=== PATIENT | male | born 1995 | race Hispanic/Latino ===

== ENCOUNTER 2023-05-29 14:25 | Emergency (ER) | payer OTHER ==
[~2023-05-29] VITALS: Ht 175.3 cm; Wt 104.3 kg
[2023-05-29 14:45] VITALS: PULSE 98; RESP 18
[2023-05-29] MEDS ORDERED: IPRATROPIUM/ALBUTEROL SULFATE 3 ML SOLUTION IH ONE ×3 (14:45→15:00)
[2023-05-29 14:53] LABS: BASOPHILS # (AUTO) 0.05 K/uL (0.00-0.20); BASOPHILS % (AUTO) 0.5 % (0.0-5.0); EOSINOPHILS # (AUTO) 0.09 K/uL (0.00-0.70); EOSINOPHILS % (AUTO) 0.9 % (0.0-8.0); HEMATOCRIT 48.7 % (42-54); IMMATURE GRANULOCYTE ABSOLUTE 0.02 K/uL (0-1); LYMPHOCYTES # (AUTO) 2.6 K/uL (1.0-4.8); LYMPHOCYTES % (AUTO) 25.9 % (21.0-51.0); MEAN CORPUSCULAR HEMOGLOBIN 29.2 pg (27.0-33.0); MEAN CORPUSCULAR HGB CONC 35.3 g/dL (32.0-36.0); MEAN CORPUSCULAR VOLUME 82.5 fL (79-99); MONOCYTES % (AUTO) 9.7 % (3.0-13.0); NEUTROPHILS # (AUTO) 6.2 K/uL (1.8-7.7); NEUTROPHILS % (AUTO) 62.8 % (40.0-77.0); PLATELET COUNT (AUTO) 359 K/uL (130-400); RED CELL DISTRIBUTION WIDTH 11.9 % (11.0-15.5); WHITE BLOOD COUNT (AUTO) 9.9 K/uL (4.8-10.8)
[2023-05-29 15:02] LABS: ABG BASE EXCESS 1.1 mmol/L (-2.0-3.0); ABG HCO3 18.7 mmol/L (21.0-28.0); ABG OXYGEN SATURATION 99.4 % (95.0-99.0); ABG PCO2 18 mmHg (35-48); ABG PH 7.628 (7.350-7.450); CARBON MONOXIDE 0.5; DEVICE COMMENT RR 5LNC; HHb 0.6; PO2, ARTERIAL BG 176.8 mmHg (83.0-108.0); VENT MODE, BG 5LNC (ROOM AIR)
[2023-05-29 15:04] LABS: CREATININE 1.1 mg/dL (0.5-1.5); POTASSIUM 3.5 mmol/L (3.5-5.1)
[2023-05-29 15:09] LABS: ALBUMIN 4.4 g/dL (3.5-5.0); BILIRUBIN,TOTAL 0.7 mg/dL (0.2-1.0); MAGNESIUM 1.6 mg/dL (1.80-2.40); TOTAL PROTEIN, SERUM 8.2 g/dL (6.0-8.3)
[2023-05-29 15:23] LABS: APPEARANCE,URINE CLEAR (CLEAR); BILIRUBIN,URINE NEGATIVE (NEGATIVE); COLOR,URINE YELLOW (YELLOW); GLUCOSE, URINE (UA) NEGATIVE (NEGATIVE); KETONES,URINE 40 mg/dL (NEGATIVE); LEUKOCYTE ESTERASE ,URINE 75 Leu/uL (NEGATIVE); NITRATE,URINE NEGATIVE (NEGATIVE); OCCULT BLOOD,URINE NEGATIVE (NEGATIVE); PH,URINE 7.5 (5.0-8.0); PROTEIN,URINE 50 mg/dL (NEGATIVE); UROBILINOGEN,URINE 0.2 mg/dL (0.2-1.0)
[2023-05-29 15:27] LABS: ADD UA MICROSCOPIC YES
[2023-05-29 15:29] LABS: MUCUS,URINE MOD LPF (None Seen); RBC,URINE 0-1 /HPF (0-1); SQUAMOUS EPITHELIAL CELL,UR RARE /HPF (0-2); WBC,URINE 26-50 /HPF (0-1)
[2023-05-29 15:32] LABS: AMPHET/METH SCREEN,URINE NEGATIVE (NEGATIVE); BARBITURATE SCREEN, URINE NEGATIVE (NEGATIVE); BENZODIAZEPINES SCREEN,URINE NEGATIVE (NEGATIVE); CANNABINOID SCREEN,URINE POSITIVE (NEGATIVE); COCAINE SCREEN,URINE POSITIVE (NEGATIVE); OPIATE SCREEN,URINE NEGATIVE (NEGATIVE); PHENCYCLIDINE SCREEN,URINE NEGATIVE (NEGATIVE)
[2023-05-29 15:33] VITALS: BP 148/85; PULSE 89; RESP 18; O2SAT 98
[2023-05-29] MEDS ORDERED: ONDANSETRON 4MG INJ IVP ONE (17:00)
[2023-05-29] MEDS ORDERED: CEPH500B PO (17:13)
[2023-05-29] MEDS ORDERED: ONDA22I SL (17:13)
== END 2023-05-29 17:58 | disposition home or self-care (01) ==
LOC: EDH 14:25
DX: N39.0 Urinary tract infection, site not specified (principal); R11.0 Nausea
CPT/HCPCS: 99285; 96374; 71045; 82947; 82550; 83735; 84484; 80053; 82803; 80305; 85025; 87088; 83605; 36415; 93005; 36600; 94640; 81001; 85018; 82435; 84132; 84295; J2405

== ENCOUNTER 2024-04-18 14:24 | Emergency (ER) | payer SELFPAY ==
[~2024-04-18] VITALS: Ht 177.8 cm; Wt 107.5 kg
[~2024-04-18 14:24] MED LIST: CEPH500B PO; ONDA22I SL
[2024-04-18 15:59] LABS: ADD UA MICROSCOPIC NO; APPEARANCE,URINE CLEAR (CLEAR); BILIRUBIN,URINE NEGATIVE (NEGATIVE); COLOR,URINE LIGHT-YELLOW (YELLOW); GLUCOSE, URINE (UA) NEGATIVE (NEGATIVE); KETONES,URINE NEGATIVE (NEGATIVE); LEUKOCYTE ESTERASE ,URINE NEGATIVE Leu/uL (NEGATIVE); NITRATE,URINE NEGATIVE (NEGATIVE); OCCULT BLOOD,URINE NEGATIVE (NEGATIVE); PROTEIN,URINE NEGATIVE (NEGATIVE); UROBILINOGEN,URINE 0.2 mg/dL (0.2-1.0)
[2024-04-18] MEDS: acetaMINOPHEN 500 MG TABLET PO ONE (16:01)
[2024-04-18 16:09] LABS: RAPID GROUP A STREP negative (NEGATIVE)
[2024-04-18 16:09] LABS: HEMATOCRIT 46.4 % (42-54); MEAN CORPUSCULAR HGB CONC 34.1 g/dL (32.0-36.0); MEAN CORPUSCULAR VOLUME 85.1 fL (79-99); RED BLOOD CELL COUNT(AUTO) 5.45 MIL/uL (4.50-6.20); RED CELL DISTRIBUTION WIDTH 11.9 % (11.0-15.5); WHITE BLOOD COUNT (AUTO) 9.2 K/uL (4.8-10.8)
[2024-04-18 16:15] LABS: INFLUENZA TYPE A Negative For Type A (NEGATIVE); INFLUENZA TYPE B Negative For Type B (NEGATIVE)
[2024-04-18 16:16] LABS: CREATININE 0.9 mg/dL (0.5-1.3); POTASSIUM 4.6 mmol/L (3.5-5.1)
[2024-04-18 16:17] LABS: COVID19 (SARS ANTIGEN RAPID) PRESUMPTIVE NEGATIVE (NEGATIVE)
[2024-04-18] MEDS ORDERED: Solu-medROL 125MG VIAL IVP ONE (17:00)
[2024-04-18] MEDS: IpraTROPium/alBUTERol SULFATE 3 ML SOLUTION IH ONE (17:19)
[2024-04-18 17:20] VITALS: PULSE 78; RESP 18
[2024-04-18] MEDS: Solu-medROL 125MG VIAL IM ONE (17:21)
[2024-04-18] MEDS ORDERED: ALBUHFA IH (18:30)
[2024-04-18 18:41] VITALS: BP 130/72; PULSE 78; RESP 18; TEMP 98; O2SAT 99
== END 2024-04-18 18:42 | disposition home or self-care (01) ==
LOC: EDH 14:24
DX: J40 Bronchitis, not specified as acute or chronic (principal); I10 Essential (primary) hypertension; Z20.822 Contact with and (suspected) exposure to COVID-19
CPT/HCPCS: 99285; 74176; 71045; 87426; 82550; 84484; 80048; 85027; 87880; 87804 ×2; 81003; 36415; 96372; 93005; 94640; J2919

== ENCOUNTER 2024-09-26 09:58 | Emergency (ER) | payer BC ==
[~2024-09-26] VITALS: Ht 177.8 cm; Wt 108.9 kg
[~2024-09-26 09:58] MED LIST changes: +ALBUHFA IH
--- NOTE | 2024-09-26 10:07 | ERN ---
ED Note History of Present Illness Stated Complaint: TOOTH PROBLEM Chief Complaint: Tooth Ache/Pain Time Seen by MD: 10:01 Dictation: PATIENT IS A 29-YEAR-OLD MALE HERE WITH COMPLAINTS OF DENTAL BLEEDING STATUS POST TOOTH EXTRACTION YESTERDAY AT A LOCAL DENTIST OFFICE. HE STATES IT HAS BEEN BLEEDING SINCE THE EXTRACTION, STATES HE CALLED THE DENTIST'S OFFICE THIS MORNING AND THEY WERE CLOSED. DENIES USE OF BLOOD THINNERS Allergies: Coded Allergies: No Known Allergies (Unverified Allergy, Unknown, 05/29/23) Home Meds Active Scripts Albuterol Sulfate (Ventolin Hfa/Proventil Hfa/Proair Hfa) 90 Mcg Puff, 2 PUFF IH Q4HPRN PRN for wheezing for 30 Days, #18 GM 0 Refills Prov:ASHLEY ALMANZA MD 04/18/24 Ondansetron HCl (Zofran) 4 Mg/2 Ml Inj, 8 MG SL Q8H PRN for NAUSEA/VOMITING for 7 Days, #21 TAB.SL Prov:SEAN HOOKS MD 05/29/23 Cephalexin Monohydrate (Keflex) 500 Mg Cap, 500 MG PO QID for 7 Days, #28 CAP Prov:SEAN HOOKS MD 05/29/23 Past Medical History Past Medical History: Hypertension Surgical History: None RN Note Reviewed/Agreed w/PFSH: Yes Review of System Dictation CONSTITUTIONAL: NEGATIVE EXCEPT FOR HPI HEAD/FACE: NEGATIVE EXCEPT FOR HPI EENT: NEGATIVE EXCEPT FOR HPI DENTAL BLEEDING STATUS POST EXTRACTION RESPIRATORY: NEGATIVE EXCEPT FOR HPI GASTROINTESTINAL/ABDOMINAL: NEGATIVE EXCEPT FOR HPI GENITOURINARY: NEGATIVE EXCEPT FOR HPI MUSCULOSKELETAL: NEGATIVE EXCEPT FOR HPI INTEGUMENTARY: NEGATIVE EXCEPT FOR HPI NEUROLOGICAL/PSYCH: NEGATIVE EXCEPT FOR HPI HEMATOLOGIC/LYMPHATIC: NEGATIVE EXCEPT FOR HPI ALL SYSTEMS NEGATIVE, EXCEPT NOTED ABOVE. 13 POINT REVIEW OF SYSTEMS ASSESSED AND ALL NEGATIVE EXCEPT FOR ABOVE. Initial Vital Sign VS Vital Signs Date Time Temp Pulse Resp B/P (MAP) Pulse Ox O2 Delivery O2 Flow Rate FiO2 09/26/24 09:59 97.2 82 18 146/99 97 Physical Exam Dictation VITAL SIGNS REVIEWED GENERAL APPEARANCE: ALERT, ORIENTED X 3, NO ACUTE DISTRESS, WELL DEVELOPED, NOURISHED. HEAD AND FACE: NON-TRAUMATIC. EYES: PERRL, PINK CONJUNCTIVAS, EYELID NO TRAUMA, ANTERIOR CHAMBER WITH ARCUS SENILIS. EARS: PINNAS INTACT AND NO SIGNS OF TRAUMA OR ERYTHEMA EAR CANALS CLEAR AND NO DISCHARGE TM NO ERYTHEMA NOSE: NO DISCHARGE, NO BLEEDING. OROPHARYNX: SOCKET NUMBER 4 BLEEDING PHARYNX CLEAR,NO ERYTHEMA, TONSILS NO EXUDATES, NO ABSCESSES NOTED, MUCOUS MEMBRANE MOIST NECK: SUPPLE, NON-TENDER, NO THYROMEGALY, NO MASSES, NO JVD, NO BRUITS BREAST:DEFERRED CHEST:NO TENDERNESS, NO CREPITUS, NO PARADOXICAL MOVEMENT, NO RETRACTIONS LUNGS:CLEAR, WELL-VENTILATED, SYMMETRIC, NO RALES, NO WHEEZING, NO RHONCHI, NO STRIDOR, GOOD BREATH SOUNDS BILATERALLY HEART: REGULAR RATE, REGULAR RHYTHM, NO MURMUR, NO GALLOPS VASCULAR: NO PERIPHERAL EDEMA, ABDOMEN: SOFT, POSITIVE BOWEL SOUNDS, NONDISTENDED, NO GUARDING, NONTENDER, NO REBOUND, NO MASSES NO HEPATOMEGALY, NO SPLENOMEGALY, NO GARRISON'S SIGN, NO HERNIAS. RECTAL: DEFERRED GENITAL: DEFERRED NEUROLOGICAL: NORMAL SPEECH, MOTOR FUNCTION INTACT, SENSORY FUNCTION INTACT MUSCULOSKELETAL: NECK NONTENDER, FULL RANGE OF MOTION, BACK NONTENDER, FULL RANGE OF MOTION, EXTREMITIES: NONTENDER, FULL RANGE OF MOTION SKIN: COLOR PINK, DRY, NO TURGOR, NO RASH, NO LACERATIONS, NO ABRASIONS, NO CONTUSIONS. LYMPHATIC: DEFERRED Results (Laboratory/Radiology) Labs Reviewed?: Yes ED Course ED Course Orders Procedure Category Date Status Time *Nursing CPOE 09/26/24 Transmitted Communication: 10:04 Vital Signs Date Time Temp Pulse Resp B/P (MAP) Pulse Ox O2 Delivery O2 Flow Rate FiO2 09/26/24 09:59 97.2 82 18 146/99 97 1045/SOCKET INSPECTED AND CLOT HIS FORMED. QUICK CLOT WITH 4 X 4 WAS REPLACED. PATIENT TOLD TO CONTINUE PRESSURE ON THE SOCKET AND STATES HE HAS A DENTIST HE FOUND IN [place] THAT WAS SEE HIM EMERGENTLY. 1105/SOCKET REINSPECTED, LARGE CLOT HIS FORMED IN THE SOCKET. NO ACTIVE BLEEDING AT THIS TIME. PATIENT STATES HE HAS AN APPOINTMENT WITH THE DENTIST IN [facility] AT 14:00 HOURS. Medical Decision Making MDM MEDICAL DISCHARGE MAKING BASED ON TREATMENT OF POST DENTAL EXTRACTION BLEEDING WITH QUICK CLOT AND 4X4S. PATIENT HAS FORMED A CLOT IN THE SOCKET NO ACTIVE BLEEDING AT THIS TIME PATIENT HAS A FOLLOW UP APPOINTMENT WITH THE DENTIST IN [facility] AT 14:00 TODAY. Procedure Procedure Dictation: 1115/EXPLAINED PROCEDURE TO PATIENT HE AGREED TO PROCEED SMALL QUICK CLOT WAS PLACED DIRECTLY INTO SOCKET WITH 4 X 4 FOR PRESSURE AND PATIENT TOLD TO [facility]AILA DX & DISP Disposition: Discharge Departure Impression: Primary Impression: Bleeding post tooth extraction Condition: Stable Additional Instructions: FOLLOW-UP WITH PRIMARY CARE PROVIDER IN 1 TO 2 DAYS. TAKE MEDICATIONS DIRECTED HERE IN THE EMERGENCY ROOM. OKAY TO CONTINUE HOME MEDICATIONS UNLESS OTHERWISE DISCUSSED DURING YOUR VISIT IN THE EMERGENCY ROOM TODAY. RETURN TO YOUR NEAREST EMERGENCY ROOM IF SYMPTOMS WORSEN OR IF THERE IS NO IMPROVEMENT. CALL 911 IF YOU NEED IMMEDIATE ASSISTANCE. TAKE TYLENOL OR MOTRIN [id number] NEEDED AND IF NO CONTRAINDICATIONS ARE PRESENT. INCREASE ORAL HYDRATION. A WOUND CULTURE OR URINE CULTURE WAS ORDERED HERE IN THE EMERGENCY ROOM DEPARTMENT PLEASE FOLLOW-UP WITH PRIMARY CARE PROVIDER AND ADVISE THEM TO GET REPEAT PORTS FROM OUR FACILITY. IF YOU HAD ANY SUMMER WRAP/SPLINTS THAT WERE APPLIED HERE, PLEASE DO NOT REMOVE THEM UNTIL YOU SEE YOUR PRIMARY CARE OR SPECIALTY. CONTINUE WITH QUICK CLOT AND 4 X 4 HAS A PRESSURE DRESSING. DO NOT REMOVE UNTIL SEEN BY YOUR DENTIST. Referrals: SELF,REFERRAL (PCP) Time of Disposition: 11:06 I have reviewed the case, and I agree with, Diagnosis and Plan I performed a substantive portion of the visit. I have reviewed and personally made and approve the management plan that is documented in the notes by myself with BOYD/resident. I acknowledged full responsibility for the patient's management plan. ANITA SCHMIDT NP Sep 26, 2024 10:07 HENRI CLARKE DO Sep 26, 2024 11:12
[2024-09-26 11:21] VITALS: BP 135/81; PULSE 80; RESP 18; TEMP 97.2; O2SAT 97
== END 2024-09-26 11:26 | disposition home or self-care (01) ==
LOC: EDH 09:58
DX: K91.840 Postprocedural hemorrhage of a digestive system organ or structure following a digestive system procedure (principal); I10 Essential (primary) hypertension; Z79.899 Other long term (current) drug therapy
CPT/HCPCS: 99282